=== PATIENT | female | born 1950 | race Caucasian/White ===

== ENCOUNTER → 2020-01-18 | Day surgery (SDC) | payer MEDICARE ==
[2020-01-16 11:34] LABS: BASOPHILS # (AUTO) 0.1 (0.0-0.1); BASOPHILS % 1.2 % (0.0-1.0); EOSINOPHILS # (AUTO) 0.3 (0.0-0.4); EOSINOPHILS % 5.1 % (0.0-6.0); HEMATOCRIT 36.5 % (34.2-44.1); LYMPHOCYTES # (AUTO) 1.9 (1.0-3.2); LYMPHOCYTES % 37.2 % (18.0-39.1); MEAN CORPUSCULAR HEMOGLOBIN 36.5 pg (28-32); MEAN CORPUSCULAR HGB CONC 32.9 g/dL (31-35); MEAN CORPUSCULAR VOLUME 110.9 fL (81-99); MONOCYTES # (AUTO) 0.5 (0.2-0.8); MONOCYTES % 9.9 % (4.4-11.3); NEUTROPHILS # (AUTO) 2.3 (2.1-6.9); NEUTROPHILS % 46.2 % (38.7-80.0); PLATELET COUNT 199 x10e3/uL (140-360); RED BLOOD COUNT 3.29 x10e6/uL (3.6-5.1); RED CELL DISTRIBUTION WIDTH 12.3 % (11.7-14.4)
[2020-01-16 12:00] LABS: ALBUMIN 3.7 g/dL (3.5-5.0); ALBUMIN/GLOBULIN RATIO 1.2 (0.8-2.0); ANION GAP 9.6 mmol/L (8-16); CALCIUM 9.7 mg/dL (8.4-10.2); CREATININE, SERUM 1.1 mg/dL (0.57-1.11); POTASSIUM 4.6 mmol/L (3.5-5.1)
[~2020-01-18] VITALS: Ht 170.2 cm; Wt 50.3 kg
[~2020-01-18] MED LIST: ACETAMINOPHEN500 M1 PO; ALPRAZOLAM 0.5 MG TAB ONE; ASPIR 8181 MG PO; CALCIUM PO; CRANBERRY250 MG PO; CREON DR 12,001 EACH PO; CYMBALTA30 MG PO; DIPHENHYDRAMINE HCL 25 MG CAP ONE; FENTANYL CITRATE/PF 100MCG/2 ML INJ ONE; HEPARIN SOD (PORCINE) 1000 UNIT/ML 30ML ONE; HEPARIN SOD/SOD CHLORIDE 2,000 ML ONE; IOPAMIDOL 300MG/ML 100 ML INFUS..BTL IV ONE; LIDOCAINE HCL 2% LOCAL 20 ML VIAL ONE; MELOXICAM7.5 MG PO; MIDAZOLAM HCL 2 MG/2 ML VIAL ONE; MYSOLINE50 MG PO; PROAIR HFA INH8.5 GM IH; ROPINIROLE HCL1 MG PO; SODIUM CHLORIDE 0.9% 1000ML 1,000 ML ONE; TIZANIDINE HCL4 MG PO; TRAZODONE HCL50 MG PO; VERAPAMIL HCL 2.5 MG/ML 2 ML VIAL ONE; VITAMIN B-121000 MCG PO
[2020-01-18 13:45] VITALS: BP 145/85
--- NOTE | 2020-01-18 14:45 | NUR ---
Dr. Milligan notified of patient's temperature 110.0F and rechecked multiple times and temperature ranged from 99.5-100.0. Dr. Milligan ordered to recheck temperature.
[2020-01-18 16:00] VITALS: BP 158/77
--- NOTE | 2020-01-18 16:00 | NUR ---
1600Received pt to room #10, Identiferx2,bedside report received from Robby NAVARRO. Alert oriented and appropriate, PERRLA, respirations even and unlabored to room air. Pulses x2 upper extremities equal and strong. Pedal pulses PT/DP non palpable Toes rell and warm to touch. Skin warm and dry integrity appears D/I. IV 22g to left hand, presents healthy w/o s/s of infiltration or complaint. Abdomen soft and supple. pt offered toileting, denies need to urinate or defecate. No personal affects with patient. Family at bedside. Currently w/o complaint of pain or need. ds/rn
[2020-01-18 16:15] VITALS: BP 143/77
[2020-01-18 16:30] VITALS: BP 117/63
[2020-01-18 17:00] VITALS: BP 131/80
--- NOTE | 2020-01-18 17:00 | NUR ---
1700pRADIAL Compression removal: Initial Cuff volume 14 cc 17pm -4cc Removed No hematoma/bleeding noted with normal neurovascular function. 1715p -5 cc Removed No hematoma/ bleeding noted with normal neurovascular function. 1730p -5cc Removed No hematoma/bleeding noted with normal neurovascular function. . Air removal completed. Stasis achieved sterile 2x2,Tegaderm, Coban dressing No hematoma, bleeding noted with normal neurovascular function. Wrist splint in place. Pt instructed on POC. Ds/Rn
[2020-01-18 17:30] VITALS: BP 161/68
--- NOTE | 2020-01-18 17:35 | NUR ---
1735pm Pt meets DC criteria. Rt Tr band site assessed for s/s of complication and presence of hematoma. Skin warm, dry, no discolor, and pulses present. IV removed from left hand, Distal tip appears intact. VS WNL. Pt denies pain, sob, or need at this time. Family at bedside sister. Review of discharge paperwork and follow up instructions. verbalized understanding. Pt to wheelchair and transported to front of hospital. Transferred to private vehicle under own strength w/o incident with DC paperwork in hand. -ds/rn
--- NOTE | 2020-01-18 21:04 | Operative Report ---
DATE OF PROCEDURE: 01/18/2020 SURGEON: Dionte Milligan MD INDICATION: Peripheral arterial disease, claudication of both lower extremity. PROCEDURES PERFORMED: 1. Ultrasound-guided access into the right radial artery with image storage and sheath placement. 2. Abdominal aorta catheter placement, abdominal aortogram runoff to bilateral femoral artery. 3. Deployment of right wrist TR band. COMPLICATION: None. RECOMMENDATIONS: CT angiogram of the abdomen and pelvis with possible referral for aortofemoral bypass surgery. DESCRIPTION OF PROCEDURE: Access obtained in the right radial artery using ultrasound guidance, a 6-[place] sheath was placed. Image storage performed. Catheter was advanced to the abdominal aorta. 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 No intervention deemed necessary. Right wrist TR band applied. The patient discharged home same day. Dionte Milligan MD [facility] /[id number]
== END | disposition home or self-care (01) ==
LOC: CATH LAB 13:33
PROVIDERS: ATTEND Internal Medicine Interventional Cardiology
DX: I70.213 Atherosclerosis of native arteries of extremities with intermittent claudication, bilateral legs (principal); I25.119 Atherosclerotic heart disease of native coronary artery with unspecified angina pectoris; Z01.812 Encounter for preprocedural laboratory examination; Z79.82 Long term (current) use of aspirin
CPT/HCPCS: 36200; 36415; 75630; 76937; 80053; 85025; C1769; C1887; J2001; J2250; J3010; J7030; Q9967; 36247; 75625; 99152; 99153; J1644

== ENCOUNTER → 2020-02-20 | Outpatient (CLI) | payer MEDICARE ==
[~2020-02-20] MED LIST changes: -ALPRAZOLAM 0.5 MG TAB ONE; -DIPHENHYDRAMINE HCL 25 MG CAP ONE; -FENTANYL CITRATE/PF 100MCG/2 ML INJ ONE; -HEPARIN SOD (PORCINE) 1000 UNIT/ML 30ML ONE; -HEPARIN SOD/SOD CHLORIDE 2,000 ML ONE; -IOPAMIDOL 300MG/ML 100 ML INFUS..BTL IV ONE; +IOPAMIDOL 370 MG/ML 200 ML INFUS..BTL INJ ONE; -LIDOCAINE HCL 2% LOCAL 20 ML VIAL ONE; -MIDAZOLAM HCL 2 MG/2 ML VIAL ONE; +SODIUM CHLORIDE 0.9% 0 ML ONE; -SODIUM CHLORIDE 0.9% 1000ML 1,000 ML ONE; +SODIUM CHLORIDE 0.9% 500ML 500 ML ONE; +SODIUM CHLORIDE 0.9% 50ML 50 ML ONE; -VERAPAMIL HCL 2.5 MG/ML 2 ML VIAL ONE
[2020-02-20 08:19] LABS: CREATININE, SERUM 1.29 mg/dL (0.57-1.11)
== END ==
LOC: CT 07:27
PROVIDERS: ATTEND Internal Medicine Interventional Cardiology
DX: I74.09 Other arterial embolism and thrombosis of abdominal aorta (principal)
CPT/HCPCS: 36415; 74174; 82565; 84520; 96360; J7040; Q9967; J7050

== ENCOUNTER → 2021-01-20 | Day surgery (SDC) | payer MEDICARE ==
[2021-01-16 10:05] LABS: BASOPHILS # (AUTO) 0.1 (0.0-0.1); BASOPHILS % 1.4 % (0.0-1.0); EOSINOPHILS # (AUTO) 0.5 (0.0-0.4); EOSINOPHILS % 8.4 % (0.0-6.0); HEMATOCRIT 34.3 % (34.2-44.1); HEMOGLOBIN 11.2 g/dL (12.0-16.0); LYMPHOCYTES # (AUTO) 1.3 (1.0-3.2); LYMPHOCYTES % 22.9 % (18.0-39.1); MEAN CORPUSCULAR HEMOGLOBIN 37.7 pg (28-32); MEAN CORPUSCULAR HGB CONC 32.7 g/dL (31-35); MEAN CORPUSCULAR VOLUME 115.5 fL (81-99); MONOCYTES # (AUTO) 0.5 (0.2-0.8); MONOCYTES % 7.7 % (4.4-11.3); NEUTROPHILS # (AUTO) 3.5 (2.1-6.9); NEUTROPHILS % 59.3 % (38.7-80.0); PLATELET COUNT 198 x10e3/uL (140-360); RED BLOOD COUNT 2.97 x10e6/uL (3.6-5.1); RED CELL DISTRIBUTION WIDTH 12.2 % (11.7-14.4)
[2021-01-16 10:30] LABS: ALBUMIN 3.2 g/dL (3.5-5.0); ALBUMIN/GLOBULIN RATIO 0.9 (0.8-2.0); ANION GAP 10.3 mmol/L (8-16); CALCIUM 8.4 mg/dL (8.4-10.2); POTASSIUM 4.3 mmol/L (3.5-5.1)
[~2021-01-20] VITALS: Ht 170.2 cm; Wt 52.2 kg
[2021-01-20] VITALS (9 sets, daily range): BP systolic 122–160; BP diastolic 66–97
[~2021-01-20] MED LIST changes: +ALPRAZOLAM 0.5 MG TAB ONE; +DIPHENHYDRAMINE HCL 25 MG CAP ONE; +FENTANYL CITRATE/PF 100MCG/2 ML INJ ONE; +FOLIC ACID0.4 MG PO; +HEPARIN SOD/SOD CHLORIDE 2,000 ML ONE; +HYDROCODON-ACE1 EA11 PEG; +LIDOCAINE HCL 2% LOCAL 20 ML VIAL ONE; +METHOCARBAMOL750 MG PO; +MIDAZOLAM HCL 2 MG/2 ML VIAL ONE; +NEURONTIN100 MG PO; -SODIUM CHLORIDE 0.9% 0 ML ONE; +SODIUM CHLORIDE 0.9% 1000ML 1,000 ML ONE; -SODIUM CHLORIDE 0.9% 500ML 500 ML ONE; -SODIUM CHLORIDE 0.9% 50ML 50 ML ONE; +VERAPAMIL HCL 2.5 MG/ML 2 ML VIAL ONE
== END | disposition home or self-care (01) ==
LOC: CATH LAB 13:45
PROVIDERS: ATTEND Internal Medicine Interventional Cardiology
DX: I25.119 Atherosclerotic heart disease of native coronary artery with unspecified angina pectoris (principal); R94.39 Abnormal result of other cardiovascular function study; I73.9 Peripheral vascular disease, unspecified; Z01.812 Encounter for preprocedural laboratory examination; Z20.822 Contact with and (suspected) exposure to COVID-19; Z79.82 Long term (current) use of aspirin
CPT/HCPCS: 36415; 76937; 80053; 83880; 85025; 93454; C1766; C1769; C1887 ×2; J2001; J2250; J3010; J7030; Q9967; U0002; 99152